=== PATIENT | female | born 1965 | race Caucasian/White ===

== ENCOUNTER 2018-03-27 09:15 | Day surgery (SDC) | payer OTHER ==
[~2018-03-27] VITALS: Ht 160 cm; Wt 81.4 kg
[~2018-03-27 09:15] MED LIST: Betamethasone D15 G1; Omeprazole20 M1 PO
== END 2018-03-27 11:23 | disposition home or self-care (01) ==
LOC: ORSCSDS 09:15
PROVIDERS: Internal Medicine Gastroenterology
PROC: 0DBK8ZX Excision of Ascending Colon, Via Natural or Artificial Opening Endoscopic, Diagnostic (ICD-10-PCS; principal; 2018-03-27 10:30)
PROC: 0DBH8ZX Excision of Cecum, Via Natural or Artificial Opening Endoscopic, Diagnostic (ICD-10-PCS; principal; 2018-03-27 10:30)
DX: Z12.11 Encounter for screening for malignant neoplasm of colon (principal); D12.0 Benign neoplasm of cecum; K57.30 Diverticulosis of large intestine without perforation or abscess without bleeding; K64.8 Other hemorrhoids
CPT/HCPCS: 88305; J7120

== ENCOUNTER 2018-05-03 11:12 | Day surgery (SDC) | payer OTHER | END 2018-05-03 11:25 | disposition home or self-care (01) | LOC: ORSCSDS 11:12 | DX: R19.7 Diarrhea, unspecified (principal); Z53.9 Procedure and treatment not carried out, unspecified reason | CPT/HCPCS: J7120 ==

== ENCOUNTER 2019-02-01 07:46 | Day surgery (SDC) | payer BC ==
[~2019-02-01] VITALS: Ht 160 cm; Wt 82.8 kg
[~2019-02-01 07:46] MED LIST changes: +Prilosec Otc20 MG PO
[2019-04-02] MEDS ORDERED: Betamethasone D15 G2 (11:34)
== END 2019-02-01 10:57 | disposition home or self-care (01) ==
LOC: ORSCSDS 07:46
PROVIDERS: Internal Medicine Gastroenterology
PROC: 0DBE8ZX Excision of Large Intestine, Via Natural or Artificial Opening Endoscopic, Diagnostic (ICD-10-PCS; principal; 2019-02-01 09:00)
PROC: 0DBP8ZX Excision of Rectum, Via Natural or Artificial Opening Endoscopic, Diagnostic (ICD-10-PCS; principal; 2019-02-01 09:00)
DX: K50.10 Crohn's disease of large intestine without complications (principal); R10.9 Unspecified abdominal pain; R19.7 Diarrhea, unspecified; D12.2 Benign neoplasm of ascending colon; K57.30 Diverticulosis of large intestine without perforation or abscess without bleeding; K64.8 Other hemorrhoids; E78.5 Hyperlipidemia, unspecified; K21.9 Gastro-esophageal reflux disease without esophagitis; Z79.899 Other long term (current) drug therapy
CPT/HCPCS: 88305; J2704; J7120

== ENCOUNTER → 2020-02-13 | Outpatient (CLI) | payer BC ==
[~2020-02-13] MED LIST changes: +Betamethasone D15 G2
== END ==
LOC: LAB SHORT 12:34 → LAB 12:34
DX: K50.10 Crohn's disease of large intestine without complications (principal)
CPT/HCPCS: 83993

== ENCOUNTER 2021-04-15 09:37 | Day surgery (SDC) | payer BC ==
[~2021-04-15] VITALS: Ht 160 cm; Wt 72.1 kg
--- NOTE | 2021-04-15 09:51 | NUR ---
04/15/21 0951 Danica Muñoz CALL LIGHT WITHIN REACH
== END 2021-04-15 11:15 | disposition home or self-care (01) ==
LOC: ORSCSDS 09:37
PROVIDERS: Internal Medicine Gastroenterology
PROC: 0DBB8ZX Excision of Ileum, Via Natural or Artificial Opening Endoscopic, Diagnostic (ICD-10-PCS; principal; 2021-04-15 10:45)
PROC: 0DBH8ZX Excision of Cecum, Via Natural or Artificial Opening Endoscopic, Diagnostic (ICD-10-PCS; principal; 2021-04-15 10:45)
PROC: 0DBL8ZX Excision of Transverse Colon, Via Natural or Artificial Opening Endoscopic, Diagnostic (ICD-10-PCS; principal; 2021-04-15 10:45)
PROC: 0DBK8ZX Excision of Ascending Colon, Via Natural or Artificial Opening Endoscopic, Diagnostic (ICD-10-PCS; principal; 2021-04-15 10:45)
DX: K50.10 Crohn's disease of large intestine without complications (principal); Z86.010 Personal history of colon polyps
CPT/HCPCS: J2704; J7120

== ENCOUNTER → 2023-08-10 | Outpatient (CLI) | payer BC ==
[~2023-08-10] MED LIST changes: +OMEP20ER PO
[2023-08-18 06:23] LABS: HPV GENOTYPE 16 BY PCR Negative; HPV GENOTYPE 18 BY PCR Negative; HPV SOURCE Vaginal; HPV, OTHER HIGH RISK BY PCR Negative
== END ==
LOC: LAB 17:10 → LAB SHORT 17:10
PROVIDERS: Internal Medicine
DX: Z00.00 Encounter for general adult medical examination without abnormal findings (principal)
CPT/HCPCS: 87624; 88142

== ENCOUNTER 2025-05-29 10:23 | Day surgery (SDC) | payer BC ==
[~2025-05-29] VITALS: Ht 160 cm; Wt 70.5 kg
[2025-05-29 14:47] VITALS: BP 112/80
== END 2025-05-29 14:47 | disposition home or self-care (01) ==
LOC: ORSCSDS 10:23
DX: K50.10 Crohn's disease of large intestine without complications (principal); K57.30 Diverticulosis of large intestine without perforation or abscess without bleeding; K64.8 Other hemorrhoids; R13.10 Dysphagia, unspecified; K21.9 Gastro-esophageal reflux disease without esophagitis; Z86.0101 Personal history of adenomatous and serrated colon polyps; Z79.899 Other long term (current) drug therapy
CPT/HCPCS: 88305; J2704; J7120